=== PATIENT | male | born 1950 | race Caucasian/White ===

== ENCOUNTER 2017-03-11 07:57 | Inpatient (IN) | payer MEDICARE, OTHER, MEDICAID, SELFPAY | END 2017-03-16 10:35 | disposition E | DRG 180 | PROVIDERS: Admitting Provider Family Medicine; Emergency Provider Emergency Medicine; Family Provider Family Medicine; Visit Provider Family Medicine | DX: C34.02 Malignant neoplasm of left main bronchus (principal); J18.9 Pneumonia, unspecified organism; I48.0 Paroxysmal atrial fibrillation; I69.354 Hemiplegia and hemiparesis following cerebral infarction affecting left non-dominant side; J90 Pleural effusion, not elsewhere classified; I69.320 Aphasia following cerebral infarction; J98.11 Atelectasis; J44.9 Chronic obstructive pulmonary disease, unspecified; Z87.891 Personal history of nicotine dependence; I10 Essential (primary) hypertension; F10.21 Alcohol dependence, in remission; K70.30 Alcoholic cirrhosis of liver without ascites; E11.9 Type 2 diabetes mellitus without complications | CPT/HCPCS: 36415; 70450; 71010; 71045; 71260; 80053; 80202; 82140; 82550; 82553; 82962; 83605; 84484; 85025; 87040; 93005; 93041; 94760; 96365; 96367; 99283; 99285; J2543; J3370; Q9967 ==